=== PATIENT | female | born 1980 | race Two or more races ===

== ENCOUNTER → 2024-08-28 | Outpatient (CLI) | payer MEDICAID, SELFPAY ==
--- NOTE | 2024-08-28 12:01 | XR_ITS ---
Examination: CT pelvis without intravenous contrast. 2-D sagittal and coronal reconstructions. Date and time of exam:August 28, 2024 1241 hours INDICATIONS: Rectal pain 5 months clinical diagnosis abscess CTDI: vol (mGy) :26.6 DLP: (mGycm) : 1076 Technique: Multiple 3 mm axial sections of the pelvis have been obtained with the 64 slice high resolution scanner. 2-D sagittal and coronal reconstructions. Low dose protocols were performed. One or more of the following dose reduction techniques were used; automated exposure control, adjustment of the mA and/or KV according to patient size, use of iterative reconstruction technique. Findings: Patient size limits the quality of this study No bowel obstruction Anteverted uterus with enlarged fundus, transverse dimension in the fundus 10 cm Contracted urinary bladder Right posterior perianal infectious process, at least 4.3 x 2.1 x 3.8 cm Also cellulitis involving the left buttock region near the intergluteal fold on the left side, extending, likely fistulous tract to the anus IMPRESSION: Posterior right perianal infectious process/early abscess, 4.3 x 2.1 x 3.8 cm Fistulous tract from the left perianal region extending to the skin surface to the intergluteal fold Repeating the pelvic study with intravenous contrast would be highly useful
== END | disposition home or self-care (01) ==
LOC: CCTX 11:53
PROVIDERS: Referring Provider Physician Assistant; Visit Provider Physician Assistant
DX: K61.0 Anal abscess (principal)
CPT/HCPCS: 72192

== ENCOUNTER → 2024-09-08 | Outpatient (CLI) | payer MEDICAID, SELFPAY ==
--- NOTE | 2024-09-08 | XR_ITS ---
Examination: PA lateral chest 2 views TECHNIQUE: Upright PA lateral chest 2 views Exam date and time: August 08, 2025 1255 hours Comparison December 19, 2023 INDICATIONS: Coughing 3 days, diagnosis asthma, diagnosis diabetes hypertension FINDINGS: Mild enlargement cardiac contour Mild vascular congestion. No lobar pneumonia or pulmonary edema IMPRESSION: Mild cardiomegaly. Mild vascular congestion
== END | disposition home or self-care (01) ==
PROVIDERS: PCP Nurse Practitioner Primary Care; Referring Provider Nurse Practitioner Primary Care; Visit Provider Nurse Practitioner Primary Care
DX: I51.7 Cardiomegaly (principal); R09.89 Other specified symptoms and signs involving the circulatory and respiratory systems
CPT/HCPCS: 71046

== ENCOUNTER → 2025-02-18 | Outpatient (CLI) | payer MEDICAID, SELFPAY ==
--- NOTE | 2025-02-18 17:00 | XR_ITS ---
Examination: CT chest, without intravenous contrast. Sagittal and coronal 2-D reconstructions. Exam date and time: February 18, 2025 1709 hours Comparison June 21, 2019 INDICATIONS: Chest pain 1 month CTDI:vol (mGy) 33.6 DLP: (mGycm) 1257 Technique: Multiple 3.0 mm axial sections of the chest to been obtained. Bone and lung density settings are obtained. Sagittal and coronal 2-D reconstructions have been obtained. Low dose protocols were performed. One or more of the following dose reduction techniques were used; automated exposure control, adjustment of the mA and/or KV according to patient size, use of iterative reconstruction technique. Findings: No thoracic aortic aneurysmal dilatation Pulmonary artery segments are not enlarged Pericardial effusion measuring up to 11 mm No lobar pneumonia or pulmonary edema 7 mm pulmonary nodule right lower lobe image 2:15 No pneumonia or pulmonary edema No visualized liver or splenic lesion No gallstones No pancreatic or adrenal mass The osseous structures are intact IMPRESSION: 7 mm pulmonary nodule right lower lobe, with this study as baseline, recommend 6 month follow-up CT chest without contrast
== END | disposition home or self-care (01) ==
LOC: CCTX 15:58
PROVIDERS: Referring Provider Physician Assistant; Visit Provider Physician Assistant
DX: R91.1 Solitary pulmonary nodule (principal)
CPT/HCPCS: 71250

== ENCOUNTER → 2025-04-01 | Outpatient (CLI) | payer MEDICAID, SELFPAY ==
--- NOTE | 2025-04-01 09:15 | XR_ITS ---
Examination: Screening digital mammography, bilateral Computer aided detection 3-D breast Tomosynthesis, bilateral Date and time of exam: April 01, 2025 0914 hours Compared to mammograms dating to December 10, 2023 Indication: Screening Technique: Nonmagnified MLO, CC views of the breasts to been obtained, reconstructed from 3-D Tomosynthesis images. R2 computer aided detection program utilized for evaluation of suspicious masses and/or abnormal calcifications. 3-D Tomosynthesis images obtained. Findings: Scattered areas of fibroglandular density Benign calcifications. No interval suspicious masses Impression: BI-RADS category II: Benign Findings. Recommend 1 year follow-up mammogram.
== END | disposition home or self-care (01) ==
LOC: CDIM 09:05
PROVIDERS: Referring Provider Nurse Practitioner Family; Visit Provider Nurse Practitioner Family
DX: Z12.31 Encounter for screening mammogram for malignant neoplasm of breast (principal); R92.323 Mammographic fibroglandular density, bilateral breasts; R92.1 Mammographic calcification found on diagnostic imaging of breast
CPT/HCPCS: 77063; 77067

== ENCOUNTER 2025-06-04 09:39 | Emergency (ER) | payer MEDICAID, SELFPAY ==
[2025-06-04] VITALS (11 sets, daily range): BP systolic 135–177; BP diastolic 62–83; PULSE 72–87; RESP 16–19; TEMP 36.7–37.4; O2SAT 95–100; BMI 83.9
--- NOTE | 2025-06-04 10:01 | PD.EDRME ---
Rapid Medical Screening Exam RME Arrival date/time: 06/04/25 09:39 45-year-old female with a history of hyperlipidemia was sent to the emergency room by her primary care provider due to low hemoglobin levels. Patient states her level was out of 5. I have greeted and performed a focused initial assessment of this patient. A comprehensive ED assessment and evaluation of the patient, analysis of all test results, and completion of the medical decision making process will be conducted by additional ED providers. Chief Complaint: General Adult/Misc Complain Vital signs: Vital Signs Temperature 99.4 F 06/04/25 09:57 Pulse Rate 79 06/04/25 09:57 Respiratory Rate 18 06/04/25 09:57 Blood Pressure 160/72 H 06/04/25 09:57 Pulse Oximetry (%) 100 06/04/25 09:57 Oxygen Delivery Method Room Air 06/04/25 09:57 Vital signs reviewed by provider: Yes
[2025-06-04 10:19] LABS: Basophils # (Auto) 0.0 Thou/mm3 (0.0-0.2); Basophils % (Auto) 0 % (0-2.5); Eosinophils # (Auto) 0.0 Thou/mm3 (0.0-0.5); Eosinophils % (Auto) 0 % (0-10); Hematocrit 22.7 % (36.0-46.0); Immature Granulocytes Auto 0.08 Thou/mm3 (0.00-0.00); Lymphocytes # (Auto) 1.6 Thou/mm3 (1.0-4.8); Lymphocytes % (Auto) 15 % (10-50); Mean Corpuscular HGB Conc 27.3 g/dl (31.0-37.0); Mean Corpuscular Hemoglobin 21.2 pg (25.0-35.0); Mean Corpuscular Volume 78 fL (80-100); Monocytes # (Auto) 0.6 Thou/mm3 (0.0-0.8); Monocytes % (Auto) 6 % (0-12); Neutrophils # (Auto) 8.0 Thou/mm3 (1.8-7.7); Neutrophils % (Auto) 77 % (37-80); Nucleated Red Blood Cell # 0.06 Thou/mm3 (0.00-0.00); Nucleated Red Blood Cell % 1 /100 WBC (0); Platelet Count 401 Thou/mm3 (140-440); RDW Standard Deviation 50.9 fL (36.4-46.3); Red Blood Count 2.93 Miln/mm3 (4.00-5.20); White Blood Count 10.3 Thou/mm3 (3.6-11.0)
[2025-06-04 10:25] LABS: Hemoglobin 6.2 g/dL (12.0-16.0)
[2025-06-04 10:35] LABS: INR 1.0 (0.9-1.3); Partial Thromboplastin Time 23.1 Seconds (22.0-36.0); Prothrombin Time 10.6 Seconds (9.0-12.2)
[2025-06-04 10:37] LABS: Alanine Aminotransferase 13 U/L (10-49); Albumin, Serum 4.1 gm/dL (3.5-5.0); Albumin/Globulin Ratio 1.9 (1.2-2.2); Alkaline Phosphatase 76 U/L (46-116); Anion Gap 9 (7-16); Aspartate Amino Transferase 19 U/L (0-34); BUN/Creatinine Ratio 12 Ratio (12-20); Bilirubin,Total 0.4 mg/dL (0.3-1.2); Blood Urea Nitrogen 12 mg/dL (9-23); Calcium 8.6 mg/dL (8.3-10.6); Calcium (Corrected) 8.6 mg/dL (8.5-10.1); Carbon Dioxide 22.6 mMol/L (20.0-31.0); Chloride 112 mMol/L (98-107); Creatinine (Component) 1.0 mg/dL (0.6-1.3); Estimated Creatinine Clearance 121.2 mL/min (>60); Globulin 2.2 gm/dL (2.3-3.5); Glucose 147 mg/dL (74-106); Osmolality,Calculated 289 (275-295); Potassium 4.4 mMol/L (3.4-5.1); Sodium 144 mMol/L (136-145); Total Protein 6.3 gm/dL (5.7-8.2); eGFR > 60 See Note
--- NOTE | 2025-06-04 11:26 | PC.NURSE ---
Addendum entered by Zulay Cervantes RN 06/04/25 13:58: Correction for original note: pt did not have surgery on her uterus recently, it was a peritoneal abscess that she had surgery for and is currenlty on antibiotics for the tx of the cyst Original Note: Pt comes in from PCP due to low HGB, c/o headache and fatigue. Pt states that she had surgery about 8 days ago possibly for uterine fibroids. Since then pt has been getting IV antibiotics via a picc line. Pt denies uterine bleeding as of the last couple of days. Is not currently complaining of pain and is not showing any signs of distress, vital WNL aside from an elevated bp
--- NOTE | 2025-06-04 11:59 | EDNOTE_ITS ---
ED General RME/HPI General Chief complaint: General Adult/Misc Complain Stated complaint: C/O FATIGUE/HEADACHE, SENT BY FOR LOW HGB Time Seen by Provider: 06/04/25 11:45 Arrival date/time: 06/04/25 09:39 RME / HPI RME / HPI narrative: 45-year-old female patient with significant history of hypercholesterolemia, history of menometrorrhagia, followed by [facility], was sent to the ER by PCP for hemoglobin of 5. Patient has been having worsening vaginal bleeding, every month, last month, patient had a bleeding of at least 15 days, according to the patient for the last 2 days no more bleeding noted. Patient now complaining of generalized body weakness, dyspnea on exertion, and easy fatigability. Patient denies any abdominal pain denies any chest pain. Denies any other complaints. Patient is currently taking ertapenem 1 g IV daily for rectal surgery done in [place] last week, last dose of IV antibiotic will be on June 08. Related Data Home Medications ?Medication ?Instructions ?Recorded ?Confirmed aspirin 81 mg chewable tablet 81 mg PO QDAY 05/29/18 0 10/28/22 atorvastatin 10 mg tablet 10 mg PO DAILY 10/22/1810/04 Previous Rx's ?Medication ?Instructions ?Recorded naproxen 500 mg tablet 500 mg PO BID #14 tabs 06/21 Allergies Allergy/AdvReac Type Severity Reaction Status Date / Time No Known Allergies Allergy Verified 06/04/25 09:42 Review of Systems Review of Systems Narrative Review of Systems: Review of system reviewed and within normal limits except mentioned in HPI ED Exam Narrative Physical exam: VITAL SIGNS: Reviewed. GENERAL APPEARANCE: Alert and interactive, follows commands, no acute distress, HEAD AND FACE: Non-traumatic. ENT: PERRL, pale conjunctiva, eyelid no trauma, Mucous membrane moist. NECK: Supple, nontender, no nuchal rigidity. CHEST: No tenderness, no crepitus, no paradoxical movement, no retractions. LUNGS: Clear, well ventilated, symmetric, no rales, no wheezing, no ronchi, no stridor, good breath sounds bilaterally. HEART: Regular rate, regular rhythm, no murmur, no gallops. ABDOMEN: Soft, positive bowel sounds, nondistended, no guarding, nontender, no rebound, no masses, RECTAL: Deferred. GENITAL: Deferred. NEUROLOGICAL: Gross motor function intact sensory function intact, Appropriate for age. MUSCULOSKELETAL: low back nontender, full range of motion. EXTREMITIES: Nontender, full range of motion. SKIN: Color pale, dry, no rash, no lacerations, no abrasions, no contusions. LYMPHATICS: Deferred. Course Quality Measures none Orders Category Date Time Status May Access Central Line NOW Care 06/04/25 13:15 Ordered Transfuse,blood/blood products ONCE Care 06/04/25 11:58 Completed CBC Stat Lab 06/04/25 10:11 Completed CMP [Comprehensive Metabolic Panel] Stat Lab 06/04/25 10:11 Completed PT [Prothrombin Time with INR] Stat Lab 06/04/25 10:11 Completed PTT [Partial Thromboplastin Time] Stat Lab 06/04/25 10:11 Completed Path Review Blood Smear Stat Lab 06/04/25 10:11 Completed Type and Screen Stat Lab 06/04/25 10:11 Completed prbc [Red Blood Cells] Stat Lab 06/04/25 10:11 Completed Ertapenem Inj [Invanz Inj] 1,000 mg Med 06/04/25 13:45 Discontinued SODIUM CHLORIDE 0.9% (Popper) [Ns 0.9% (P)] 50 ml IV X1 Ertapenem Inj [Invanz Inj] 1,000 mg Med 06/04/25 13:45 Discontinued Sterile Water 10 ml Sodium Chloride 0.9% [Ns] 50 ml IV X1 Vital Signs Vital signs: Vital Signs Temperature 99.4 F 06/04/25 09:57 Pulse Rate 79 06/04/25 09:57 Respiratory Rate 18 06/04/25 09:57 Blood Pressure 160/72 H 06/04/25 09:57 Pulse Oximetry (%) 100 06/04/25 09:57 Oxygen Delivery Method Room Air 06/04/25 09:57 Discharge Plan Plan Patient Disposition: HOME (Self Care) Discharge Disposition comment: Stable Prescriptions/Referrals Prescriptions/Med Rec: No Action naproxen 500 mg tablet 500 mg PO BID Qty: 14 0RF aspirin 81 mg Tablet,Chewable 81 mg PO QDAY atorvastatin 10 mg Tablet 10 mg PO DAILY Referrals: Juliana Ivey PA-C [Primary Care Provider] - In 1 week Problem List Clinical Impression: Menometrorrhagia, Anemia, Receiving intravenous antibiotic treatment as outpatient Patient/Caregiver Discharge Instructions Discharge Activity: activity as tolerated Education Materials: Anemia Additional Instructions: Thank you for the opportunity for serving you today. You are stable for discharged . You are advised to: Follow-up with your PCP in 1 to 2 days Return to ED for worsening of symptoms Follow-up on your referral to [facility] Print Language: Estonian Stand Alone Forms: Dipti Award Info., Patient Portal Info Letter ALONZO/CHERYLE Supervising Physician ALONZO/CHERYLE Supervising Physician: MD Checo MDM Narrative MDM hospital course (for use when minimal MDM required): 45-year-old female patient with significant history of hypercholesterolemia, history of menometrorrhagia, followed by [facility], was sent to the ER by PCP for hemoglobin of 5. Patient has been having worsening vaginal bleeding, every month, last month, patient had a bleeding of at least 15 days, according to the patient for the last 2 days no more bleeding noted. Patient now complaining of generalized body weakness, dyspnea on exertion, and easy fatigability. Patient denies any abdominal pain denies any chest pain. Denies any other complaints. Patient's hemoglobin today was noted to be 6.2 hematocrit of 22.7 platelets normal the rest of the labs unremarkable. Patient was given 2 units of packed RBC Patient is receiving outpatient ertapenem for rectal surgery that was done last few weeks ago Was given a dose of ertapenem while in the emergency room. Patient stable for discharge home. Medication Administration(s) Medication Administration History Discontinued Medications Ertapenem 1,000 mg/ Sterile (Water 10 ml/ Sodium Chloride) 60 mls @ 120 mls/hr IV X1 ONE Stop: 06/04/25 14:14 Ertapenem 1,000 mg/ Sodium (Chloride) 50 mls @ 100 mls/hr IV X1 ONE Stop: 06/04/25 14:14 Last Infusion: 06/04/25 19:05 Dose: Infused Documented By: Admin: 06/04/25 16:25 Dose: 100 mls/hr Documented By: AVTAR Diagnosis Differential Diagnosis ED Complaint MDM: Menometrorrhagia, anemia secondary to menometrorrhagia, iron deficiency ane Diagnoses ruled out and/or further discussions: Anemia secondary to menometrorrhagia
[2025-06-04 14:31] LABS: Path Review Blood Smear Sent to Pathologist
[2025-06-04] MEDS: ERTAPENEM INJ 1,000 MG in SODIUM CHLORIDE 0.9% (Popper) 50 ML 100 MG IV (16:25)
== END 2025-06-04 20:11 | disposition home or self-care (01) ==
PROVIDERS: Nurse Practitioner Family; Emergency Provider Family Medicine; PCP Physician Assistant
DX: N92.1 Excessive and frequent menstruation with irregular cycle (principal); D50.0 Iron deficiency anemia secondary to blood loss (chronic); E78.00 Pure hypercholesterolemia, unspecified
CPT/HCPCS: 36415; 36430; 80053; 85025; 85610; 85730; 86850; 86900; 86901; 86923; 96365; 96366; 99284; J1335; J7050; P9016

== ENCOUNTER 2025-07-22 12:50 | Outpatient (AMB) | payer MEDICAID, SELFPAY ==
[2025-07-22 13:06] VITALS: BP 145/82; PULSE 68; RESP 19; TEMP 36.5; O2SAT 96; BMI 85.0
--- NOTE | 2025-07-22 13:06 | AMB.GYNCLNOT ---
Vital Signs 07/22/25 13:06 Height 1.52 m Height Method Stated Weight 197.483 kg Weight Measurement Method Standing Scale BMI 85.0 BP 145/82 H Blood Pressure Source Automatic Cuff Blood Pressure Location Left Lower Arm Position Sitting Respiration 19 Pulse 68 Pulse Source Monitor Temp 97.7 F Temp Source Temporal Artery Scan Pulse Oximetry (%) 96 Oxygen Delivery Method Room Air Allergies/Home Meds Allergies & Medications Allergies No Known Allergies Allergy (Verified 07/22/25 13:08) Medication Reconciliation atorvastatin 10 mg tablet 10 mg PO DAILY 10/22/18 [History Confirmed 07/22/25] naproxen 500 mg tablet 500 mg PO BID #14 tabs 06/21/19 [Rx Confirmed 10/28/22] albuterol sulfate 90 mcg/actuation aerosol inhaler (Ventolin HFA) 1 inh inhalation QID 07/22/25 [History Confirmed 07/22/25] amiodarone 200 mg tablet 200 mg PO BID 07/22/25 [History Confirmed 07/22/25] carvedilol 25 mg tablet 25 mg PO Q12H 07/22/25 [History Confirmed 07/22/25] diltiazem HCl 30 mg tablet (Cardizem) 30 mg PO QID 07/22/25 [History Confirmed 07/22/25] duloxetine 30 mg capsule,delayed release 30 mg PO BID 07/22/25 [History Confirmed 07/22/25] ferrous sulfate 325 mg (65 mg iron) tablet 325 mg PO QDAY 07/22/25 [History Confirmed 07/22/25] rosuvastatin 20 mg tablet 20 mg PO QDAY 07/22/25 [History Confirmed 07/22/25] valsartan 40 mg tablet 40 mg PO BID 07/22/25 [History Confirmed 07/22/25] Intake Visit Data Collection New Patient or Established: New Patient (never been to [facility]) Reason for Visit:: AUB Seen by Clinical Staff ONLY (RN/MA): No Banking Services Officer Required: Yes Do You Feel Safe at Home: Yes Authorities Contacted: N/A PCP or OBGYN visit in last 3 months: Yes Hx Now: No Are you currently on any form of Control: Yes Pain Present Currently: No Pain Scale Used: Dan-Herrera/Numerical Pain scale:: 0 Smoking Status Smoking Status: Never smoker Immunizations Flu Vaccine in the Last 12 Months: Yes Date of most recent flu vaccination: 05/03/25 Flu Vaccine Exclusion Criteria: No Exclusion Criteria 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 History Menstrual regularity: irregular Flow: heavy Monthly: No Age at menarche: 13 Menopausal: No Currently sexually active: Yes 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 1. Little interest or pleasure in doing things: not at all 2. Feeling down, depressed, or hopeless: not at all Total score: 0 PHQ-9 3. Trouble falling or staying asleep, or sleeping too much: Not at all 4. Feeling tired or having little energy: Not at all 5. Poor appetite or overeating: Not at all 6. Feeling bad about yourself - or that you are a failure or have let yourself or your family down: Not at all 7. Trouble concentrating on things, such as reading the newspaper or watching television: Not at all 8. Moving or speaking so slowly that other people could have noticed? - Or the opposite - being so fidgety or restless that you have been moving around a lot more than usual: not at all 9. Thoughts that you would be better off or of hurting yourself in some way: Not at all Total score: 0 Source: Developed by Drs. Jefferson Barber, Yael Gallegos, Bryan Pradhan and colleagues, with an educational breanna from [employer]. Social History Living Situation History Housing: House Tobacco History Smoking Status: Never smoker Alcohol History Alcohol Intake: Never Domestic Abuse History Do You Feel Safe at Home: Yes History of Present Illness HPI Narrative Rena Berry presents with a history of heavy and painful periods and is being followed for management of her menorrhagia. She was previously evaluated at a hospital in [place] where hysterectomy was recommended, but she declined the procedure due to concerns about surgical risks related to her weight and comorbidities. She reports being told she could from the surgery and expresses reluctance to undergo any surgical intervention. The patient is currently being managed with dual hormonal therapy consisting of Nexplanon contraceptive implant placed in [place] and Depo-Provera injections administered every 3 months. She reports compliance with this regimen. Recent imaging revealed an enlarged uterus with multiple fibroids. She expresses preference for continuing her current non-surgical management approach. Regarding her weight management, the patient has been on Mounjaro for 5 months and reports significant weight loss. She was previously pre-diabetic but reports this condition has resolved. She has attempted to see weight loss specialists but has been denied services. Her primary care provider has discussed potential bariatric procedures including endoscopic options that can be performed through the mouth. She also mentions having a skin condition involving bacterial growth that requires surgical intervention. The patient expresses understanding that her current hormonal management may provide symptom control for approximately 3 years and that approaching menopause may naturally resolve her heavy bleeding issues. She is a 45-year-old female. The patient is currently taking Nexplanon implant, injection every 3 months, and Mounjaro for 5 months. ROS: General: Positive for weight loss. Genitourinary: Positive for heavy and painful periods. Exam General General Appearance: alert, in no apparent distress and healthy appearing Head Head exam: atraumatic Neck Neck exam: Present normal inspection and trachea midline Chest Chest inspection: Present normal inspection and symmetric chest wall rise External exam: Present normal external exam; Absent tenderness Neuro Neurological exam: Present oriented X3 Psych Psychiatric exam: Present normal affect and normal mood Office Procedures [facility] LOC & Office Proc's Nursing/Assessment Patient Status: Initial/New Patient OB Clinic Nursing Assessment: Medication Reconciliation, Update PMH in EMR and Vital Signs OB Clinic Coordination of Care: Complex Care and Chronic Disease 1-5, Education Complex Pt/Fam, Consent,records obtained, informed consent, Lab and Imaging orders, Results/Orders obtained and Staff clarify orders New Patient Charge New Patient Point Assignment: [id number] New Patient Point Charge: PLANT GUARD Level 3 ([id number]) Assessment & Plan Diagnosis / Problem List (1) Excessive and frequent menstruation with regular cycle: Status: Acute (2) Leiomyoma of uterus, unspecified: Status: Acute (3) Obesity: Status: Acute (4) Personal history of nicotine dependence: Status: Acute Plan Heavy Menstrual Bleeding with Fibroids: - 45-year-old female with heavy and painful periods, multiple uterine fibroids, and enlarged uterus. - Previous consultation recommended hysterectomy, but patient declined due to surgical risks related to obesity. - Currently managed with combination hormonal therapy including Nexplanon implant and Depo-Provera injections every 3 months. - At age 45, approaching menopause may provide natural resolution of symptoms over time. Plan: - Continue Nexplanon implant and Depo-Provera injections every 3 months. - If breakthrough bleeding occurs, increase injection frequency to every 2 months for higher dose. - Patient can receive injections here or from primary care provider. - Schedule next injection appointment to maintain tracking and monitoring. - If current regimen fails, discuss alternative treatment options. Obesity with Weight Management: - Patient on Mounjaro for 5 months with significant weight loss. - Previously denied for weight loss surgery due to her conditions. - Primary care provider mentioned potential endoscopic procedures through the mouth as alternative options. Plan: - Continue Mounjaro with potential for dose increase. - Request referral from primary care for weight loss specialist consultation. - Consider referral to insole department worker for dietary management. - Explore endoscopic weight loss procedures as discussed with primary care. Pre-diabetes Resolved: - Patient was previously pre-diabetic but is no longer diabetic, likely related to weight loss from Mounjaro therapy. Plan: - Continue current management with Mounjaro.
== END 2025-07-22 13:49 | disposition home or self-care (01) ==
LOC: HODSOBC 12:50
PROVIDERS: Supervising Provider Obstetrics & Gynecology; Visit Provider Obstetrics & Gynecology
DX: D25.9 Leiomyoma of uterus, unspecified (principal); N92.0 Excessive and frequent menstruation with regular cycle; E66.9 Obesity, unspecified; Z68.45 Body mass index [BMI] 70 or greater, adult; I10 Essential (primary) hypertension; Z87.891 Personal history of nicotine dependence; Z79.899 Other long term (current) drug therapy
CPT/HCPCS: 99203; G0463